=== PATIENT | female | born 2000 | race Caucasian/White ===

== ENCOUNTER 2020-03-05 07:41 | Outpatient (NON) | payer OTHER, SELFPAY ==
[2020-03-05 23:29] LABS: SARS-CoV-2 RNA PCR Negative
== END 2020-03-05 07:42 ==
PROVIDERS: PCP Physician Assistant; Visit Provider Physician Assistant
DX: R51.9 Headache, unspecified (principal); Z20.822 Contact with and (suspected) exposure to COVID-19
CPT/HCPCS: C9803; U0003